=== PATIENT | female | born 1965 ===

== ENCOUNTER 2016-08-22 08:02 | Day surgery (SDC) | payer MEDICAID ==
[2016-08-22] MEDS ORDERED: Lactated Ringer's 500 ML IV ONE (08:39)
[2016-08-22 08:54] VITALS: TEMP 96.8; O2SAT 100
[2016-08-22] MEDS ORDERED: Propofol 10 mg/ml Inj (20 ML) ONE (09:54)
[2016-08-22 10:59] VITALS: BP 100/70; PULSE 66; RESP 14
== END 2016-08-22 11:16 | disposition home or self-care (01) ==
LOC: H.ENDO 08:02
PROVIDERS: ATTEND Internal Medicine Gastroenterology
DX: Z12.11 Encounter for screening for malignant neoplasm of colon (principal); K64.8 Other hemorrhoids